=== PATIENT | female | born 2005 | race Caucasian/White ===

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

== ENCOUNTER → 2024-07-26 | Outpatient (CLI) | payer BC | LOC: RAD 11:26 | DX: L72.9 Follicular cyst of the skin and subcutaneous tissue, unspecified (principal) ==